=== PATIENT | female | born 1955 | race Caucasian/White ===

== ENCOUNTER → 2024-10-10 14:44 | Outpatient (REF) | payer MEDICARE, SELFPAY | LOC: WDC 14:44 | PROVIDERS: ATTENDING PHYSICIAN Obstetrics & Gynecology Gynecology; FAMILY PHYSICIAN Family Medicine | DX: Z12.31 Encounter for screening mammogram for malignant neoplasm of breast (principal) | CPT/HCPCS: 77063; 77067 ==

== ENCOUNTER → 2025-08-20 14:53 | Outpatient (REF) | payer MEDICARE, SELFPAY | LOC: RAD 14:53 | PROVIDERS: ATTENDING PHYSICIAN Physician Assistant Medical | DX: Z91.81 History of falling (principal); M25.511 Pain in right shoulder; M89.8X1 Other specified disorders of bone, shoulder | CPT/HCPCS: 73000; 73030 ==

== ENCOUNTER → 2025-11-27 13:50 | Outpatient (REF) | payer MEDICARE, SELFPAY | LOC: WDC 13:50 | PROVIDERS: ATTENDING PHYSICIAN Obstetrics & Gynecology Gynecology; FAMILY PHYSICIAN Family Medicine | DX: Z78.0 Asymptomatic menopausal state (principal); Z12.31 Encounter for screening mammogram for malignant neoplasm of breast | CPT/HCPCS: 77063; 77067 ==